=== PATIENT | male | born 1965 | race Two or more races ===

== ENCOUNTER 2020-10-28 15:24 | Outpatient (CLI) | payer OTHER | END 2020-10-28 16:13 | disposition home or self-care (01) | LOC: OFIC 805 15:24 | PROVIDERS: ATTEND Otolaryngology Otology & Neurotology | DX: J04.0 Acute laryngitis (principal); R05 Cough ==

== ENCOUNTER 2020-11-27 10:57 | Outpatient (CLI) | payer OTHER | END 2020-11-27 12:29 | disposition home or self-care (01) | LOC: OFIC 805 10:57 | PROVIDERS: ATTEND Otolaryngology Otology & Neurotology | DX: J04.0 Acute laryngitis (principal); R05 Cough; J34.89 Other specified disorders of nose and nasal sinuses ==